=== PATIENT | female | born 1985 | race American Indian/Alaskan Native ===

== ENCOUNTER 2024-10-18 16:07 | Emergency (ER) | payer MEDICAID ==
[2024-10-18 17:56] LABS: APPEARANCE,URINE SLT CLOUDY (Clear); BILIRUBIN,URINE NEGATIVE (Negative); COLOR,URINE YELLOW (Yellow); GLUCOSE,URINE NEGATIVE (Negative); KETONES,URINE 2+ (Negative); LEUKOCYTE ESTERASE,URINE 1+ (Negative); NITRITE,URINE POSITIVE (Negative); OCCULT BLOOD,URINE TRACE-INTACT (Negative); PH,URINE 6.5 (5.0-8.0); PROTEIN,URINE 2+ (Negative); UROBILINOGEN,URINE 0.2 (0.2-1.0)
[2024-10-18 18:01] LABS: BARBITURATE SCREEN,URINE NEGATIVE (CUTOFF=200); BENZODIAZEPINES SCREEN,URINE NEGATIVE (CUTOFF=150); BUPRENORPHINE SCREEN,URINE NEGATIVE (CUTOFF=10); METHADONE SCREEN, URINE NEGATIVE (CUTOFF=200); METHAMPHETAMINES SCREEN, URINE PRESUMPTIVE POSITIVE (CUTOFF=500); OXYCODONE SCREEN,URINE NEGATIVE (CUT0FF=100); THC SCREEN,URINE 20 NG/ML NEGATIVE (CUTOFF=50)
[2024-10-18 18:03] LABS: AMPHETAMINES SCREEN, URINE PRESUMPTIVE POSITIVE (CUTOFF=500)
[2024-10-18 18:08] LABS: BACTERIA,URINE MODERATE /hpf (FEW); SQUAMOUS EPITHELIAL CELLS,UR 0-5 /hpf (0-5)
[2024-10-18 18:09] LABS: MUCUS,URINE FEW /hpf (FEW)
[2024-10-18 18:19] LABS: BASOPHILS ABSOLUTE AUTO 0.1 K/mm3 (0.0-0.2); BASOPHILS PERCENT AUTO 0.4 % (0.0-1.0); EOSINOPHILS ABSOLUTE AUTO 0.1 K/mm3 (0.0-0.4); HEMATOCRIT 33.9 % (37.0-47.0); IMMATURE GRAN ABSOLUTE AUTO 0.08 K/mm3 (0.00-0.05); IMMATURE GRAN PERCENT AUTO 0.7 % (0.0-0.4); LYMPHOCYTES ABSOLUTE AUTO 2.3 K/mm3 (1.0-4.8); LYMPHOCYTES PERCENT AUTO 18.5 % (24.0-44.0); MEAN CORPUSCULAR HEMOGLOBIN 27.2 pg (28.0-32.0); MEAN CORPUSCULAR HGB CONC 32.4 g/dl (32.0-36.0); MEAN CORPUSCULAR VOLUME 83.9 fl (83.0-99.0); MEAN PLATELET VOLUME 9.7 fl (9.4-12.3); MONOCYTES ABSOLUTE AUTO 0.8 K/mm3 (0.0-0.8); MONOCYTES PERCENT AUTO 6.4 % (0.0-8.0); NEUTROPHILS ABSOLUTE AUTO 8.9 K/mm3 (1.8-7.7); PLATELET COUNT,PLT 297 K/mm3 (150-400); RED BLOOD CELL COUNT 4.04 M/mm3 (4.10-5.30); WHITE BLOOD CELL COUNT,WBC 12.13 K/mm3 (3.9-11.3)
[2024-10-18 18:44] LABS: A/G RATIO 1.1 (1-2); ALBUMIN 3.6 g/dl (3.4-5.0); ANION GAP 13.5 (5-15); BILIRUBIN TOTAL 0.3 mg/dL (0.2-1.0); CALCIUM 8.3 mg/dL (8.5-10.1); CREATININE 0.6 mg/dL (0.55-1.02); EST CRCL DRUG DOSING (CG) 103.1 mL/min; MAGNESIUM 1.6 mg/dL (1.8-2.4); POTASSIUM,K 3.5 mEq/L (3.5-5.1)
[2024-10-18] MEDS: cefTRIAXone 1 GM Vial IM ONE (19:57)
[2024-10-18] MEDS: Lidocaine 1% 2 ML ONE (20:02)
[2024-10-18] MEDS: cefTRIAXone 1 GM Vial IVPUSH ONE (20:02)
[2024-10-18] MEDS: Magnesium Sulfate 2 GM/50 mL 2 GM/50 ML BAG IV ONE (20:02)
== END 2024-10-18 20:30 | disposition home or self-care (01) ==
LOC: JD.ED 16:07
DX: F32.A Depression, unspecified (principal); R45.851 Suicidal ideations; N39.0 Urinary tract infection, site not specified; Z79.899 Other long term (current) drug therapy
CPT/HCPCS: 36415; 80053; 80143; 80179; 80306; 80307; 81001; 81025; 82550; 83735; 85025; 96372; 99284; J0696; J2003; 99283

== ENCOUNTER 2024-12-02 23:58 | Emergency (ER) | payer MEDICAID ==
[2024-12-03 01:14] LABS: BASOPHILS ABSOLUTE AUTO 0.1 K/mm3 (0.0-0.2); BASOPHILS PERCENT AUTO 0.7 % (0.0-1.0); EOSINOPHILS ABSOLUTE AUTO 0.3 K/mm3 (0.0-0.4); EOSINOPHILS PERCENT AUTO 3.1 % (0.0-6.0); IMMATURE GRAN ABSOLUTE AUTO 0.04 K/mm3 (0.00-0.05); IMMATURE GRAN PERCENT AUTO 0.5 % (0.0-0.4); LYMPHOCYTES ABSOLUTE AUTO 3.1 K/mm3 (1.0-4.8); LYMPHOCYTES PERCENT AUTO 36.0 % (24.0-44.0); MEAN PLATELET VOLUME 9.8 fl (9.4-12.3); MONOCYTES ABSOLUTE AUTO 0.6 K/mm3 (0.0-0.8); MONOCYTES PERCENT AUTO 6.7 % (0.0-8.0); NEUTROPHILS ABSOLUTE AUTO 4.6 K/mm3 (1.8-7.7); NEUTROPHILS PERCENT AUTO 53.0 % (41.0-71.0); NRBC ABSOLUTE 0.00 (0.00-0.02); NRBC PERCENT 0.0 % (0.0-0.2); PLATELET COUNT,PLT 396 K/mm3 (150-400); RED BLOOD CELL COUNT 3.87 M/mm3 (4.10-5.30); WHITE BLOOD CELL COUNT,WBC 8.69 K/mm3 (3.9-11.3)
[2024-12-03 01:32] LABS: A/G RATIO 1.1 (1-2); ALANINE AMINOTRANSFERASE,ALT 40.0 U/L (14-59); ASPARTATE AMNIOTRANSFERASE,AST 28.0 U/L (15-37); BILIRUBIN TOTAL 0.2 mg/dL (0.2-1.0); BLOOD UREA NITROGEN,BUN 10.0 mg/dL (7-18); CARBON DIOXIDE,CO2 26.0 mEq/L (21-32); CHLORIDE,CL 105.0 mEq/L (98-107); CREATININE 0.7 mg/dL (0.55-1.02); EST CRCL DRUG DOSING (CG) 96.13 mL/min; ESTIMATED GFR 112.0 mL/min (>60); ETHANOL BLOOD MEDICAL 0.21 gm% (0.00); GLUCOSE RANDOM 95.0 mg/dL (70-99); POTASSIUM,K 3.6 mEq/L (3.5-5.1); PROTEIN TOTAL,TP 6.9 g/dl (6.4-8.2); SODIUM,NA 142.0 mEq/L (136-145)
[2024-12-03] MEDS: Thiamine 200 MG/2 ML MDV IVPUSH ONE (03:53)
[2024-12-03 04:09] LABS: PHOSPHORUS 2.7 mg/dL (2.6-4.7)
== END 2024-12-03 05:30 | disposition home or self-care (01) ==
LOC: JD.ED 23:58 → MERGE 23:58 → JD.ED 12-03 05:30
DX: F10.129 Alcohol abuse with intoxication, unspecified (principal); Z79.84 Long term (current) use of oral hypoglycemic drugs; Z88.0 Allergy status to penicillin; Z79.899 Other long term (current) drug therapy
CPT/HCPCS: 36415; 80053; 80307; 83735; 84100; 85025; 96374; 99284; J3411; J7030; 99283